=== PATIENT | male | born 1965 | race Caucasian/White ===

== ENCOUNTER 2022-09-17 19:04 | Emergency (ER) | payer BC ==
[2022-09-17] MEDS ORDERED: ASPIRIN 81 MG CHEWABLE TABLET ONE (19:41)
[2022-09-17 19:47] LABS: Protime INR 0.94
--- NOTE | 2022-09-17 19:47 | ER ---
Nurse's Notes [facility] Name: Dhaval Pringle Age: 57 yrs Sex: Male : 1965 Arrival Date: 09/17/2022 Time: 19:04 Bed 8 Private MD: Diagnosis: ST elevation (STEMI) myocardial infarction of inferior wall;ST elevation (STEMI) myocardial infarction of unspecified site Presentation: 09/17 19:19 Chief complaint: Patient states: I have been having chest pain for the past three days ha1 and it is not going away. Coronavirus screen: Vaccine status: Patient reports receiving the 2nd dose of the covid vaccine. [employer] Ebola Screen: No symptoms or risks identified at this time. Initial Sepsis Screen: Does the patient meet any 2 criteria? No. Patient's initial sepsis screen is negative. Does the patient have a suspected source of infection? No. Patient's initial sepsis screen is negative. Risk Assessment: Do you want to hurt yourself or someone else? Patient reports no desire to harm self or others. Onset of symptoms was September 15, 2022. 19:19 Method Of Arrival: Ambulatory ha1 19:19 Acuity: MASON 3 ha1 Triage Assessment: 19:23 General: Appears uncomfortable, Behavior is calm, cooperative. Pain: Complains of pain kd3 in anterior aspect of left upper chest and mid-sternal area. Cardiovascular: Patient's skin is warm and dry. 19:23 General: Appears uncomfortable, Behavior is calm, cooperative. Pain: Complains of pain ha1 in chest Pain currently is 5 out of 10 on a pain scale. Quality of pain is described as pressure, throbbing. Neuro: Level of Consciousness is awake, alert, obeys commands, Oriented to person, place, time, situation. Respiratory: Airway is patent Respiratory effort is even, unlabored, Respiratory pattern is regular, symmetrical. Historical: - Allergies: 19:23 PENICILLINS; ha1 - Home Meds: 19:23 Lisinopril Oral [Active]; ha1 - PMHx: 19:23 Hypertensive disorder; ha1 - Immunization history:: Adult Immunizations unknown. - Social history:: Smoking status: Patient reports the use of cigarette tobacco products, smokes one-half pack cigarettes per day. Screenin:23 [facility] ED Fall Risk Assessment (Adult) History of falling in the last 3 months, kd3 including since admission No falls in past 3 months (0 pts) Confusion or Disorientation No (0 pts) Intoxicated or Sedated No (0 pts) Impaired Gait No (0 pts) Mobility Assist Device Used No (0 pt) Altered Elimination No (0 pt) Score/Fall Risk Level 0 - 2 = Low Risk Maintained a safe environment. Abuse screen: Denies threats or abuse. Denies injuries from another. Nutritional screening: No deficits noted. Tuberculosis screening: No symptoms or risk factors identified. Assessment: 19:40 General: Appears uncomfortable, Behavior is calm, cooperative. Pain: Complains of pain ll3 in mid-sternal area Pain does not radiate. Pain currently is 4 out of 10 on a pain scale. Quality of pain is described as heavy, Pain began 2-3 days ago. Is continuous. Neuro: Level of Consciousness is awake, alert, obeys commands, Oriented to person, place, time, situation. Cardiovascular: Reports chest pain, diaphoresis, shortness of breath, since 3 days Patient's skin is warm and dry. Rhythm is. Respiratory: Reports shortness of breath Respiratory effort is even, unlabored, Respiratory pattern is regular, symmetrical. Derm: Reports Diaphoresis at home. 20:23 Reassessment: Significant other, pt gives permission to make decisions and receive 1 information. Gladis Aguirre, [phone]. 20:28 Reassessment: No changes from previously documented assessment. Patient and/or family vc1 updated on plan of care and expected duration. Pain level reassessed. Patient is alert, oriented x 3, equal unlabored respirations, skin warm/dry/pink. 20:35 Reassessment: handed over care to [facility]. vc1 Vital Signs: 19:19 BP 135 / 93; Pulse 77; Resp 20 S; Temp 98.2; Pulse Ox 100% on R/A; Weight 113.4 kg; ha1 Height 5 ft. 10 in. ; Pain 5/10; 19:40 BP 132 / 91; Pulse 81; Resp 18; Pulse Ox 100% on R/A; ll3 19:40 Weight 119.5 kg (M); vc1 20:00 BP 100 / 64; Pulse 84; Resp 23; Pulse Ox 95% on R/A; vc1 20:05 BP 115 / 73; Pulse 78; Resp 23; Pulse Ox 98% on R/A; vc1 20:10 BP 109 / 72; Pulse 77; Resp 23; Pulse Ox 100% on R/A; vc1 20:15 BP 109 / 87; Pulse 76; Resp 23; Pulse Ox 98% on R/A; vc1 19:40 Body Mass Index 37.80 (119.50 kg, 177.8 cm) vc1 19:19 Pain Scale: Adult ha1 ED Course: 19:08 Patient arrived in ED. ja2 19:14 Teja Rockwell MD is Attending Physician. kdr 19:22 Triage completed. ha1 19:23 Arm band placed on right wrist. kd3 19:25 Patient has correct armband on for positive identification. Bed in low position. Call vc1 light in reach. Client placed on continuous cardiac and pulse oximetry monitoring. NIBP monitoring applied. 19:55 Vika Olsen, VANGIE is Primary Nurse. vc1 20:00 Inserted saline lock: 20 gauge in right antecubital area, using aseptic technique. oe Blood collected. 20:03 Initiated transfer to [facility], spoke with Amisha. wm 20:04 Pt accepted for transfer by Dr. Escalante \T\ 1954. wm 20:09 XRAY Chest (1 view) In Process Unspecified. EDMS 20:23 No provider procedures requiring assistance completed. Patient maintains SpO2 vc1 saturation greater than 95% on room air. 20:46 Patient transferred, IV remains in place. vc1 Administered Medications: 19:37 Drug: Aspirin PO Chewable Tablet 324 mg Route: PO; ll3 20:45 Follow up: Response: No adverse reaction vc1 19:49 Drug: Nitroglycerin Sublingual 0.4 mg Route: Sublingual; vc1 20:45 Follow up: Response: No adverse reaction; Marked relief of symptoms vc1 19:50 Drug: Heparin (SD-Bolus No thrombolytic) - HEParin IVP 60 units/kg {Co-Signature: ll3 vc1 (Elijah Wei RN).} Route: IVP; Site: right antecubital; 20:45 Follow up: Response: No adverse reaction vc1 19:50 Drug: Heparin (SD Drip) - (D5W IV 500 ml, [place] [address] units) 12 units/kg/hr vc1 {Co-Signature: ll3 (Elijah Wei RN).} Route: IV; Rate: calculated rate; Site: right antecubital; 20:45 Follow up: IV Status: Infusion continued upon transfer vc1 20:10 Drug: TNK FOR STROKE - Tenecteplase IV 0.25 mg/kg {Co-Signature: ll3 (martita Wei RN).} Route: IV; Rate: per protocol; Site: right antecubital; 20:11 Follow up: IV Status: Completed infusion; IV Intake: 10ml ; iv push vc1 20:25 Drug: Clopidogrel PO 300 mg Route: PO; ll3 20:45 Follow up: Response: No adverse reaction vc1 Medication: 20:23 VIS not applicable for this client. vc1 Intake: 20:11 IV: 10ml; Total: 10ml. vc1 Outcome: 19:46 ER care complete, transfer ordered by . kdr 20:46 Transferred by helicopter to [facility], Transfer form completed. vc1 X-rays sent w/ patient. 20:46 Condition: good 20:46 Instructed on the need for transfer, medication usage. 20:53 Patient left the ED. sb4 Signatures: Dispatcher [employer] EDMS Teja Rockwell MD MD kdr Espinosa, Orlando oe Marsh, Wendy Ashley Silva2 Elijah Wei, VANGIE RN ll3 Jerica Giron RN RN kd3 Vika Olsen RN RN vc1 Jeannette Dash RN RN ha1 Brown, Sophia, PA-C PAFrancisco sb4 Elijah Wei RN ll3 Corrections: (The following items were deleted from the chart) 20:08 20:03 Pt accepted wm wm
--- NOTE | 2022-09-17 19:47 | EDPHYS ---
Physician Documentation [facility] Name: Dhaval Pringle Age: 57 yrs Sex: Male : 1965 Arrival Date: 09/17/2022 Time: 19:04 Bed 8 Private MD: ED Physician Teja Rockwell HPI: 09/17 19:47 This 57 yrs old Male presents to ER via Ambulatory with complaints of Chest Pain. kdr 19:47 Patient presents with 3 days of intermittent chest pain that began in the center of his kdr chest and has persisted since then in the same location without radiation. Patient has had shortness of breath and diaphoresis. Patient states he simply cannot get comfortable. Patient otherwise unremarkable and was ambulated to the room without significant difficulty. Patient has not had anything like this before. Patient is otherwise been in his usual state of health. Patient was put on lisinopril several years ago but has been noncompliant. Patient did take 1 tablet of lisinopril earlier today.. Onset: The symptoms/episode began/occurred gradually, 3 day(s) ago. Severity of symptoms: At their worst the symptoms were moderate just prior to arrival, in the emergency department the symptoms are unchanged. The patient has not experienced similar symptoms in the past. The patient has not recently seen a physician. Historical: - Allergies: 19:23 PENICILLINS; ha1 - Home Meds: 19:23 Lisinopril Oral [Active]; ha1 - PMHx: 19:23 Hypertensive disorder; ha1 - Immunization history:: Adult Immunizations unknown. - Social history:: Smoking status: Patient reports the use of cigarette tobacco products, smokes one-half pack cigarettes per day. ROS: 19:47 Constitutional: Negative for fever, chills, and weight loss, Eyes: Negative for injury, kdr pain, redness, and discharge, ENT: Negative for injury, pain, and discharge, Neck: Negative for injury, pain, and swelling, Back: Negative for injury and pain, : Negative for injury, bleeding, discharge, and swelling, MS/Extremity: Negative for injury and deformity, Skin: Negative for injury, rash, and discoloration, Neuro: Negative for headache, weakness, numbness, tingling, and seizure activity. Psych: Negative for depression, anxiety, suicide ideation, homicidal ideation, and hallucinations, Allergy/Immunology: Negative for hives, rash, and allergies, Endocrine: Negative for neck swelling, polydipsia, polyuria, polyphagia, and marked weight changes, Hematologic/Lymphatic: Negative for swollen nodes, abnormal bleeding, and unusual bruising. 19:47 Cardiovascular: Positive for chest pain, of the anterior aspect of left upper chest and mid-sternal area. 19:47 Respiratory: Positive for wheezing. Exam: 19:59 Constitutional: This is a well developed, well nourished patient who is awake, alert, kdr and in mild distress. Head/Face: Normocephalic, atraumatic. Eyes: Pupils equal round and reactive to light, extra-ocular motions intact. Lids and lashes normal. Conjunctiva and sclera are non-icteric and not injected. Cornea within normal limits. Periorbital areas with no swelling, redness, or edema. Neck: Trachea midline, no thyromegaly or masses palpated, and no cervical lymphadenopathy. Supple, full range of motion without nuchal rigidity, or vertebral point tenderness. No Meningismus. Chest/axilla: Normal chest wall appearance and motion. Nontender with no deformity. No lesions are appreciated. Cardiovascular: Regular rate and rhythm with a normal S1 and S2. No gallops, murmurs, or rubs. Normal PMI, no JVD. No pulse deficits. Respiratory: Lungs have equal breath sounds bilaterally, clear to auscultation and percussion. No rales, rhonchi or wheezes noted. No increased work of breathing, no retractions or nasal flaring. Abdomen/GI: Soft, non-tender, with normal bowel sounds. No distension or tympany. No guarding or rebound. No evidence of tenderness throughout. Back: No spinal tenderness. No costovertebral tenderness. Full range of motion. Skin: Warm, dry with normal turgor. Normal color with no rashes, no lesions, and no evidence of cellulitis. MS/ Extremity: Pulses equal, no cyanosis. Neurovascular intact. Full, normal range of motion. Neuro: Awake and alert, GCS 15, oriented to person, place, time, and situation. Cranial nerves II-XII grossly intact. Motor strength 5/5 in all extremities. Sensory grossly intact. Cerebellar exam normal. Normal gait. Psych: Awake, alert, with orientation to person, place and time. Behavior, mood, and affect are within normal limits. 19:59 Respiratory: the patient does not display signs of respiratory distress, Respirations: normal, Breath sounds: Course COPD like breath sounds. Vital Signs: 19:19 BP 135 / 93; Pulse 77; Resp 20 S; Temp 98.2; Pulse Ox 100% on R/A; Weight 113.4 kg; ha1 Height 5 ft. 10 in. ; Pain 5/10; 19:40 BP 132 / 91; Pulse 81; Resp 18; Pulse Ox 100% on R/A; ll3 19:40 Weight 119.5 kg (M); vc1 20:00 BP 100 / 64; Pulse 84; Resp 23; Pulse Ox 95% on R/A; vc1 20:05 BP 115 / 73; Pulse 78; Resp 23; Pulse Ox 98% on R/A; vc1 20:10 BP 109 / 72; Pulse 77; Resp 23; Pulse Ox 100% on R/A; vc1 20:15 BP 109 / 87; Pulse 76; Resp 23; Pulse Ox 98% on R/A; vc1 19:40 Body Mass Index 37.80 (119.50 kg, 177.8 cm) vc1 19:19 Pain Scale: Adult ha1 MDM: 19:46 Patient medically screened. kdr 19:46 HEART Score: History: Highly Suspicious (2), ECG: Significant ST-deviation (2), Age: > kdr 45 and < 65 years (1), Risk Factors: 1 or 2 risk factors (1). The patient was given aspirin in the Emergency Department. Data reviewed: vital signs, nurses notes, lab test result(s), radiologic studies. Management of patient was discussed with the following: Lamp Developer: I discussed the patient's presentation and initial EKG with Dr. Middleton who recommended transfer to [facility]. 21:45 ED course: Patient was stable in the ED. He responded well to the medications and kdr interventions given. He was transferred via [facility] to the [facility] without incident.. 09/17 19:20 Order name: Basic Metabolic Panel; Complete Time: 20:24 kdr 09/17 19:20 Order name: CBC with Diff; Complete Time: 20:24 kdr 09/17 19:20 Order name: LFT's; Complete Time: 20:24 kdr 09/17 19:20 Order name: Magnesium; Complete Time: 20:24 kdr 09/17 19:20 Order name: NT PRO-BNP; Complete Time: 20:24 kdr 09/17 19:20 Order name: PT-INR; Complete Time: 20:24 kdr 09/17 19:20 Order name: Troponin HS; Complete Time: 20:24 kdr 09/17 19:49 Order name: Ptt, Activated; Complete Time: 20:24 vc1 09/17 19:20 Order name: XRAY Chest (1 view); Complete Time: 21:46 kdr 09/17 19:20 Order name: EKG; Complete Time: 19:20 kdr 09/17 19:20 Order name: Cardiac monitoring; Complete Time: 19:39 kdr 09/17 19:20 Order name: EKG - Nurse/Tech; Complete Time: 19:39 kdr 09/17 19:20 Order name: IV Saline Lock; Complete Time: 19:39 kdr 09/17 19:20 Order name: Labs collected and sent; Complete Time: 19:39 kdr 09/17 19:20 Order name: O2 Per Protocol; Complete Time: 19:32 kdr 09/17 19:20 Order name: O2 Sat Monitoring; Complete Time: 19:32 kdr Administered Medications: 19:37 Drug: Aspirin PO Chewable Tablet 324 mg Route: PO; ll3 20:45 Follow up: Response: No adverse reaction vc1 19:49 Drug: Nitroglycerin Sublingual 0.4 mg Route: Sublingual; vc1 20:45 Follow up: Response: No adverse reaction; Marked relief of symptoms vc1 19:50 Drug: Heparin (KS-Bolus No thrombolytic) - HEParin IVP 60 units/kg {Co-Signature: ll3 vc1 (Elijah Wei RN).} Route: IVP; Site: right antecubital; 20:45 Follow up: Response: No adverse reaction vc1 19:50 Drug: Heparin ([place] Drip) - (D5W IV 500 ml, [place] [address] units) 12 units/kg/hr vc1 {Co-Signature: ll3 (Elijah Wei RN).} Route: IV; Rate: calculated rate; Site: right antecubital; 20:45 Follow up: IV Status: Infusion continued upon transfer vc1 20:10 Drug: TNK FOR STROKE - Tenecteplase IV 0.25 mg/kg {Co-Signature: ll3 (Sanjuana, vc1 Elijah VENCES).} Route: IV; Rate: per protocol; Site: right antecubital; 20:11 Follow up: IV Status: Completed infusion; IV Intake: 10ml ; iv push vc1 20:25 Drug: Clopidogrel PO 300 mg Route: PO; ll3 20:45 Follow up: Response: No adverse reaction vc1 Disposition Summary: 09/17/22 19:46 Transfer Ordered Transfer Location: [facility] kdr Reason: Higher level of care kdr Condition: Serious kdr Problem: new kdr Symptoms: have improved kdr Accepting Physician: maribel(09/17/22 20:53) sb4 Diagnosis - ST elevation (STEMI) myocardial infarction of inferior wall kdr - ST elevation (STEMI) myocardial infarction of unspecified site kdr Forms: - Medication Reconciliation Form kdr - SBAR form kdr Signatures: Dispatcher [employer] Teja Ortega MD MD kdr Elijah Wei, RN RN ll3 Vika Olsen RN RN vc1 Jeannette Dash RN RN ha1 Thalia Henderson, PAJahairaC PAFrancisco sb4 Elijah Wei RN ll3 Corrections: (The following items were deleted from the chart) 20:53 19:46 rr kdr sb4
[2022-09-17 19:48] LABS: Absolute Lymphocytes (CBC) 2.4 K/uL (0.7-4.9); Hematocrit 45.2 % (39.6-49.0); Lymphocytes % 26.5 % (15.3-44.8); MPV 8.7 fL (7.6-11.3); RBC Red Blood Cell Count 5.25 M/uL (4.33-5.43)
[2022-09-17] MEDS ORDERED: HEPARIN 5000 UNIT/ML 1 ML VIAL ONE (19:51)
[2022-09-17] MEDS ORDERED: HEPARIN/D5W 25,000 UNIT/500 ML BAG IV ONE (19:52)
[2022-09-17] MEDS ORDERED: NITROGLYCERIN 0.4 MG/TAB SL ONE (19:52)
[2022-09-17 20:02] LABS: ALT/SGPT 60 U/L (16-61); AST/SGOT 46 U/L (15-37); Albumin 3.5 g/dL (3.4-5.0); Alkaline Phosphatase 71 U/L (45-117); BUN Blood Urea Nitrogen 13 mg/dL (7-18); Bicarbonate 27 mEq/L (21-32); Bilirubin Total 0.2 mg/dL (0.2-1.0); Glomerular Filtration Rate 86 ml/min (=/>90); Glucose Level 122 mg/dL (74-106); Magnesium 2.1 mg/dL (1.6-2.4); NT PRO-BNP 247 pg/mL (<125); Potassium 4.1 mEq/L (3.5-5.1); Sodium Level 137 mEq/L (136-145)
[2022-09-17 20:03] LABS: Bilirubin Direct < 0.1 mg/dL (0-0.2); Bilirubin Indirect, Calculated ND mg/dL (0.2-0.8)
[2022-09-17] MEDS ORDERED: TENECTEPLASE 50 MG/10 ML VIAL IV ONE (20:05)
[2022-09-17] MEDS ORDERED: CLOPIDOGREL 75 MG TABLET ONE (20:28)
--- NOTE | 2022-09-17 20:42 | RAD REPORT ---
EXAM DESCRIPTION: RAD - Chest Single View - 09/17/2022 8:07 pm CLINICAL HISTORY: CHEST PAIN COMPARISON: No comparisons FINDINGS: Lines: None. Lungs: Mild nonspecific coarsening of the pulmonary interstitium. No consolidative airspace disease o r edema. Pleural: No significant pleural effusions or pneumothorax. Cardiac: The heart size is within normal limits. Mediastinum: Within normal limits. Bones: No acute fractures. Other: None IMPRESSION: Nonspecific coarsening of the pulmonary interstitium could reflect a mild infectious or inflammatory process. No consolidative pneumonia or edema.
[2022-09-17 22:31] VITALS: TEMP 98.2
[2022-09-17 22:40] VITALS: BP 109/87; O2SAT 98
--- NOTE | 2022-09-18 14:18 | EKG ---
Test Date: 2022-09-17 Test Time: 19:15:36 Pattern Vault Clerk: KARINA MEASUREMENT RESULTS: Intervals: Rate: 78 MO: 144 QRSD: 106 QT: 376 QTc: 428 [place]: P: 61 MO: 144 QRS: 87 T: 106 INTERPRETIVE STATEMENTS: Normal sinus rhythm Marked ST abnormality, possible lateral subendocardial injury Abnormal ECG No previous ECG available for comparison Electronically Signed On 09-18-22 14:16:41 CDT by Orestes Middleton
== END 2022-09-17 20:53 | disposition short-term general hospital (02) ==
LOC: ER 19:04
DX: I21.19 ST elevation (STEMI) myocardial infarction involving other coronary artery of inferior wall (principal); I21.3 ST elevation (STEMI) myocardial infarction of unspecified site; I10 Essential (primary) hypertension; F17.210 Nicotine dependence, cigarettes, uncomplicated; Z88.0 Allergy status to penicillin
CPT/HCPCS: 96365; 92977; 93005; 85025; 80048; 36415; 83735; 85610; 80076; 85730; 84484; 83880; 71045; 96375; 99285; J1644; J3101